=== PATIENT | male | born 1965 | race African-American/Black ===

== ENCOUNTER 2020-08-04 12:02 | Emergency (ER) | payer MEDICAID ==
[~2020-08-04] VITALS: Ht 157.5 cm; Wt 103.9 kg
[2020-08-04 12:45] LABS: HEMATOCRIT. 43.5 % (42.0-52.0); HEMOGLOBIN. 14.6 g/dL (14.0-18.0); MEAN CORPUSCULAR HEMOGLOBIN 30.7 pg (28.0-32.0); MEAN CORPUSCULAR VOLUME 91.2 fL (80.0-94.0); MEAN PLATELET VOLUME 8.8 fl (7.4-10.4); PLATELET 290 x1000/uL (130-400); RED BLOOD CELL COUNT 4.77 mill/uL (4.7-6.1); RED CELL DISTRIBUTION WIDTH 12.4 % (11.6-14.6)
[2020-08-04 12:54] LABS: CHLORIDE 104 mEq/L (98-107)
[2020-08-04 13:01] LABS: ETHANOL BLOOD < 10 mg/dL
[2020-08-04 13:17] LABS: PROTHROMBIN TIME 10.9 sec (9.6-11.0)
[2020-08-04 13:31] LABS: PLATELET ESTIMATE NORMAL
[2020-08-04] MEDS ORDERED: ASPIRIN 325MG EC TABLET PO ONE (13:45)
[2020-08-04 20:00] VITALS: BP 151/89
== END 2020-08-04 20:30 | disposition left against medical advice (07) ==
LOC: ER 12:17 → EDBEDREQ 19:53 → EDBEDREQTM 19:53 → ER 20:30 → CANBEDREQ 21:12
DX: R53.1 Weakness (principal); E11.9 Type 2 diabetes mellitus without complications; I10 Essential (primary) hypertension; Z86.73 Personal history of transient ischemic attack (TIA), and cerebral infarction without residual deficits
CPT/HCPCS: 36415; 71045; 80053; 80320; 82140; 84484; 85025; 93005; 99285; G0480